=== PATIENT | male | born 1970 | race Caucasian/White ===

== ENCOUNTER → 2024-04-17 11:09 | Outpatient (REF) | payer BC, SELFPAY | LOC: RAD 11:09 | PROVIDERS: ATTENDING PHYSICIAN Specialist; FAMILY PHYSICIAN Internal Medicine | DX: R14.0 Abdominal distension (gaseous) (principal) | CPT/HCPCS: 74177; Q9967 ==

== ENCOUNTER → 2024-11-28 16:18 | Outpatient (REF) | payer BC, SELFPAY | LOC: RAD 16:18 | PROVIDERS: ATTENDING PHYSICIAN Internal Medicine | DX: M54.50 Low back pain, unspecified (principal) | CPT/HCPCS: 72110 ==

== ENCOUNTER → 2025-06-25 13:30 | Outpatient (REF) | payer BC, SELFPAY | LOC: RAD 13:30 | PROVIDERS: ATTENDING PHYSICIAN Internal Medicine | DX: M25.552 Pain in left hip (principal) | CPT/HCPCS: 73502 ==

== ENCOUNTER → 2025-07-03 15:39 | Outpatient (REF) | payer BC, SELFPAY ==
[2025-07-03 17:08] LABS: Body Fluid Second Tech DW
== END ==
LOC: REG 15:39
PROVIDERS: ATTENDING PHYSICIAN Physician Assistant Surgical; FAMILY PHYSICIAN Internal Medicine
DX: M25.561 Pain in right knee (principal)
CPT/HCPCS: 89051; 89060